=== PATIENT | female | born 1985 | race Caucasian/White ===

== ENCOUNTER 2016-11-02 11:19 | Emergency (ER) | payer OTHER | END 2016-11-02 15:10 | disposition home or self-care (01) | LOC: ER1 11:19 | DX: S16.1XXA Strain of muscle, fascia and tendon at neck level, initial encounter (principal); F17.210 Nicotine dependence, cigarettes, uncomplicated; X58.XXXA Exposure to other specified factors, initial encounter | CPT/HCPCS: 72040; 84703; 99283; J1885 ==

== ENCOUNTER 2021-12-29 09:44 | Emergency (ER) | payer OTHER ==
[~2021-12-29 09:44] MED LIST: CLEOCIN HCL300 MG PO; IBUPROFEN600 MG PO; KEFLEX CAP 500500 MG PO; Viscous lidocaine2%; ZOFRAN4 MG PO
[2021-12-29 10:49] LABS: HEMOGLOBIN 12.5 gm/dl (12.3-15.3); RED BLOOD COUNT 4.15 M/UL (4.00-5.10); WHITE BLOOD COUNT 19.5 K/UL (4.5-11.0)
[2021-12-29 11:11] LABS: BUN/CREATININE RATIO 17 (0-10)
== END 2021-12-29 21:30 | disposition short-term general hospital (02) ==
LOC: ER1 09:44
PROVIDERS: Physician Assistant Medical
DX: R10.9 Unspecified abdominal pain (principal)
CPT/HCPCS: 80053; 83605; 85025; 87040; 96374; 96375; 96376; 99284; J2270; J2405; J2765; Q9967